=== PATIENT | male | born 1960 | race Caucasian/White ===

== ENCOUNTER → 2020-11-05 | Outpatient (CLI) | payer MEDICARE, OTHER ==
[~2020-11-05] MED LIST: ABILIFY 5 MG TAB5 MG PO; ABILIFY10 MG PO; ALPRAZOLAM0.5 MG PO; CELEXA20 MG PO; COUMADIN4 MG PO; COUMADIN7.5 MG PO; CRESTOR20 MG PO; CYMBALTA60 MG PO; DOC-Q-LACE100 MG PO; ELIQUIS 2.5 MG2.5 MG PO; ELIQUIS 5 MG TAB5 MG PO; ELIQUIS2.5 MG PO; HYDROXYZINE HCL10 MG PO; LAMICTAL100 MG PO; LEVAQUIN750 MG PO; LORTAB 5-325 M1 EACH PO; LOVENOX100 MG/1 M SQ; MULTIVITAMINS1 EAC1 PO; NEURONTIN300 MG PO; PERCOCET 5/325 T1 EA PO; PROVENTIL HFA6.7 GM INH; SEROQUEL100 MG PO; TAMSULOSIN HCL0.4 MG PO; TENORMIN 50 MG50 MG PO; TOFRANIL 50 MG50 MG PO; TOPROL XL25 MG PO; TRAZODONE HCL50 MG PO; VIAGRA25 MG PO; VIIBRYD20 MG PO; ZOLOFT100 MG PO
[2020-11-05 14:19] LABS: HEMOGLOBIN 15.1 gm/dl (14.0-17.5); RED BLOOD COUNT 5.18 M/UL (4.20-5.50); WHITE BLOOD COUNT 8.2 K/UL (4.5-11.0)
== END ==
LOC: CT 13:52
PROVIDERS: Internal Medicine Hematology & Oncology
DX: N28.9 Disorder of kidney and ureter, unspecified (principal); C64.1 Malignant neoplasm of right kidney, except renal pelvis; I26.99 Other pulmonary embolism without acute cor pulmonale; R91.1 Solitary pulmonary nodule; R91.8 Other nonspecific abnormal finding of lung field
CPT/HCPCS: 36415; 71260; 80053; 85027; Q9967

== ENCOUNTER → 2021-11-11 | Outpatient (CLI) | payer MEDICARE | LOC: CT 11-01 11:00 | DX: I26.99 Other pulmonary embolism without acute cor pulmonale (principal); R91.1 Solitary pulmonary nodule; C64.1 Malignant neoplasm of right kidney, except renal pelvis; N28.9 Disorder of kidney and ureter, unspecified; R91.8 Other nonspecific abnormal finding of lung field | CPT/HCPCS: 71250 ==

== ENCOUNTER → 2022-02-28 | Outpatient (CLI) | payer MEDICARE | LOC: CT 15:09 | DX: R91.1 Solitary pulmonary nodule (principal); I26.99 Other pulmonary embolism without acute cor pulmonale; C64.1 Malignant neoplasm of right kidney, except renal pelvis; I28.9 Disease of pulmonary vessels, unspecified; J98.11 Atelectasis | CPT/HCPCS: 71250 ==